=== PATIENT | male | born 1970 | race Caucasian/White ===

== ENCOUNTER 2023-05-14 09:08 | Day surgery (SDC) | payer OTHER ==
[~2023-05-14] VITALS: Ht 193 cm; Wt 122.9 kg
[~2023-05-14 09:08] MED LIST: ALPR.25 PO; ATEN25 PO; DULO30 PO; GABA100 PO; Oxazepam10 MG PO; TRAZ50 PO
[2023-05-14 10:21] VITALS: BP 153/96
--- NOTE | 2023-05-14 10:30 | NUR ---
Ambulatory in Day Surgery History, Chart, Medications and Allergies reviewed before start of procedure. Pre-Op teaching done. Pt verbalizes understanding. Patient States Post-Procedure ride home has been arranged.
--- NOTE | 2023-05-14 11:11 | NUR ---
05/14/23 1111 Anabell Boone History, Chart, Medications and Allergies reviewed before start of procedure. O2 VIA N/C INTACT THROUGHOUT SEDATION/PROCEDURE. See Anesthesia record
[2023-05-14 11:45] VITALS: BP 122/80
[2023-05-14 12:01] VITALS: BP 122/79
--- NOTE | 2023-05-14 12:16 | NUR ---
Discharge instructions reviewed with patient. Patient verbalizes understanding. Copy given to patient to take home. Patient States Post-Procedure ride home has been arranged. Discharged via wheelchair to private car for ride home.
== END 2023-05-14 12:25 | disposition home or self-care (01) ==
LOC: ORSCMMR 09:08 → ORD 10:30 → ORSCMMR 10:30
PROVIDERS: Internal Medicine Gastroenterology
PROC: 0DJD8ZZ Inspection of Lower Intestinal Tract, Via Natural or Artificial Opening Endoscopic (ICD-10-PCS; principal; 2023-05-14 10:30)
DX: K92.1 Melena (principal); I10 Essential (primary) hypertension; F32.A Depression, unspecified; G47.30 Sleep apnea, unspecified; G47.33 Obstructive sleep apnea (adult) (pediatric); Z68.33 Body mass index [BMI] 33.0-33.9, adult; F41.9 Anxiety disorder, unspecified; Z79.899 Other long term (current) drug therapy
CPT/HCPCS: J2704; J7120